=== PATIENT | female | born 1985 | race Caucasian/White ===

== ENCOUNTER → 2018-10-09 15:43 | Outpatient (CLI) | payer BC, SELFPAY ==
--- NOTE | 2018-10-09 15:50 | MR_ITS ---
MR head/brain wo/w con HISTORY: ITS.REASON: CSF LEAK ORDERING PHYSICIAN: KING Alvarez PATIENT AGE: 32 years Comparison: None TECHNIQUE: Standard multiplanar multiecho sequences are performed without and with gadolinium enhancement. FINDINGS: No midline shift, mass effect, intracranial hemorrhage, or acute infarction is evident. The cerebellopontine angles, cerebellum, and brainstem are unremarkable. The lateral ventricles are slightly more prominent than what one expected for the patient's age. The third and fourth ventricle are unremarkable. There is a partial empty sella. The optic chiasm, corpus callosum, and craniocervical junction have an unremarkable appearance. No enhancing lesions are evident. No intracranial or calvarial mass. No abnormal fluid collections. There is normal doss-white matter differentiation. No enhancing lesions There is complete opacification of the right maxillary sinus is some heterogeneous signal intensity and peripheral enhancement. There is abnormal signal intensity also of the ethmoid sinuses on the right somewhat heterogeneous. No adjacent intracranial abnormal signal intensity is evident however, would recommend a dedicated CT of the sinuses in this patient with CSF leak to ensure that there is not a lesion invading into the calvarium. IMPRESSION: 1. There is mild prominence of the lateral ventricles is a question clinical significance. 2. Complete opacification of the right maxillary sinus with moderate opacification of the right ethmoid sinuses with lobular and peripheral enhancement within the right maxillary sinus and heterogeneous intensity of the right ethmoid sinus. Polyps or retention cysts are considered. Suggests dedicated CT of the sinuses with thin sections to exclude any calvarial erosion in this patient with CSF leak.
== END ==
PROVIDERS: Visit Provider Physician Assistant
DX: G96.0 Cerebrospinal fluid leak (principal)
CPT/HCPCS: 70553; A9576